=== PATIENT | female | born 1980 | race Caucasian/White ===

== ENCOUNTER → 2020-04-08 | Outpatient (CLI) | payer OTHER | LOC: OD 10:52 | PROVIDERS: ATTEND Otolaryngology | DX: J30.9 Allergic rhinitis, unspecified (principal) | CPT/HCPCS: 36415; 82785; 86003 ==

== ENCOUNTER 2020-09-16 07:21 | Day surgery (SDC) | payer OTHER ==
[~2020-09-16 07:21] MED LIST: CLINDAMYCIN 900 MG/D5W RTU 900 MG/50 ML RTUPB IV PRN
[2020-09-16] MEDS ORDERED: PROMETHAZINE HCL INJ 25 MG/1 ML VIAL ONE (08:17)
[2020-09-16] MEDS ORDERED: FENTANYL CITRATE INJ/PF 100 MCG/2 ML AMPUL ONE (08:17)
[2020-09-16] MEDS ORDERED: ONDANSETRON HCL INJ/PF 4 MG/2 ML SDV ONE (08:17)
[2020-09-16] MEDS ORDERED: PROPOFOL INJ 200 MG/20 ML VIAL IV ONE (08:18)
[2020-09-16] MEDS ORDERED: DEXMEDETOMIDINE INJ 80 MCG/20 ML VIAL IV ONE (08:18)
[2020-09-16] MEDS ORDERED: SUCCINYLCHOLINE CHLORIDE INJ 200 MG/10 ML VIAL ONE (08:18)
[2020-09-16] MEDS ORDERED: DEXAMETHASONE SOD PHOS INJ 10 MG/1 ML VIAL ONE (08:18)
[2020-09-16] MEDS ORDERED: HYDROMORPHONE HCL INJ/PF 2 MG/ML AMPULE ONE (08:18)
[2020-09-16] MEDS ORDERED: MIDAZOLAM 2 MG/2 ML INJ ONE (08:21)
[2020-09-16] MEDS ORDERED: BACITRACIN ZINC OINTMENT 15 GM ONE (08:27)
[2020-09-16] MEDS ORDERED: BUPIVACAINE HCL 0.5%-EPI 1:200000 INJ/PF 30 ML VIAL ONE (08:27)
[2020-09-16] MEDS ORDERED: MINERAL OIL (STERILE) 10 ML VIAL ONE (08:27)
[2020-09-16] MEDS ORDERED: BUPIVACAINE HCL 0.5%/EPI 1:200000 INJ 1.8 ML CARTRIDGE ONE (08:28)
[2020-09-16] MEDS ORDERED: BALANCED SALT IRRIG SOLN COMB2 15 ML BOTTLE ONE (08:28)
[2020-09-16] MEDS ORDERED: TOBRAMYCIN SULFATE/DEXAMETH OPH OINTMENT 3.5 GM ONE (08:28)
[2020-09-16] MEDS ORDERED: OXYMETAZOLINE HCL 0.05% NASAL SPRAY 15 ML BOTTLE ONE (08:28)
[2020-09-16] MEDS ORDERED: LIDOCAINE 1%/EPINEPHRINE INJ 20 ML VIAL ONE (08:31)
[2020-09-16] MEDS ORDERED: ACETAMINOPHEN 1,000 MG/100 ML RTUPB IV ONE (09:21)
--- NOTE | 2020-09-26 10:36 | Operative Report ---
[facility]: DATE OF OPERATION: PREOPERATIVE DIAGNOSES: 1. Chronic rhinosinusitis/CRS 2. Nasal septal deviation, Acquired 3. Bilateral inferior turbinate hypertrophy 4. Nasal Deformities, Acquired 5. Chronic Nasal Dyspnea 6. Bilateral middle turbinate hypertrophy 7. Lateral nasal valve collapse/narrowing POSTOPERATIVE DIAGNOSES: 1. Chronic rhinosinusitis/CRS 2. Nasal septal deviation, Acquired 3. Bilateral inferior turbinate hypertrophy 4. Nasal Deformities, Acquired 5. Chronic Nasal Dyspnea 6. Bilateral middle turbinate hypertrophy 7. Lateral nasal valve collapse/narrowing PROCEDURES: 1. Endo nasal septorhinoplasty with bilateral nasal valve surgery 2. Functional endoscopic sinus surgery as follows: 3. Bilateral maxillary sinus balloon sinuplasty via bilateral transnasal rigid surgical endoscopy 4. Bilateral frontal sinus balloon sinuplasty via bilateral transnasal rigid surgical endoscopy 5. Bilateral intramural inferior turbinate reductions using submucus resection techniques 6. Bilateral middle turbinate reductions using sinus surgery instruments in the microdebrider system SURGEON: Dr. Huan Connolly Anesthesia Staff: JANICE Oneil ANESTHESIA: General endotracheal tube anesthesia/GETA DRAINS: None SPONGE COUNT: Verified NEEDLE COUNT: Verified SPECIMEN/MATERIALS FORWARD TO THE LAB: None ESTIMATED BLOOD LOSS: 50 mL TOTAL IV FLUIDS: 350 mL COMPLICATIONS: None FINDINGS: 1. Right nasal septal deviation involving bone and cartilage with a maxillary crest spur/septal spur. 2. Bilateral inferior and middle turbinate hypertrophy. 3. There were no sinonasal polyps noted or discharge noted. 4. Bilateral nasal valve collapse/narrowing/deficiencies. INDICATIONS: This is a 39-year-old white female patient who was seen and evaluated in the [place] [facility] office. The patient was referred for and they complained of a history of chronic nasal dyspnea, and acute recurrent and chronic sinusitis/sinus disease symptoms over the years. The patient has desired to undergo sinus and nasal surgery to improve functional nasal airflow and overall quality of life. The procedure consisting of septorhinoplasty with bilateral nasal valve surgery, functional endoscopic sinus surgery with balloon sinuplasty of the bilateral maxillary and frontal sinuses, and bilateral inferior and middle turbinate reductions with all of the risks and complications being discussed in detail with the patient. She voiced an understanding, agreed to proceed, and consent was obtained. DESCRIPTION OF OPERATIVE PROCEDURE: The patient was taken to the main operating room and placed on the operating room table in the supine position. Appropriate monitors were placed. Using mask and IV access general anesthesia was induced. The patient was then transorally intubated without difficulty. The table was next positioned for nasal surgery. The patient underwent a nasal examination and local anesthetic with epinephrine was administered to establish a nasal block. The patient next had two Afrin soaked neuropatties placed into each nasal passage. The patient was then prepped and draped in the usual fashion for nasal surgery. The neuropatties were removed and the patient underwent a hemitransfixion incision. There was elevation of the mucoperichondrial and mucoperiosteal flaps without difficulty. The bony cartilaginous junction was identified and divided and the most deviated portions of the bony and cartilaginous septum were removed without difficulty. The maxillary crest/septal spur was removed utilizing a V-gouge without difficulty. There was a greater than 1.5 X 1.5 cm cartilaginous L-Strut preserved. Attention was now turned to performing bilateral inferior turbinate reductions. The turbinate bipolar wand was used to make 2 - 3 intramural passes in each inferior turbinate. At this point the turbinate microdebrider system at a setting of 1500 RPM was used to perform bilateral inferior turbinate submucus resections. This was followed by use of the [place] elevator to outfracture each inferior turbinate. Excessive/redundant mucosa at the anterior portion of the inferior turbinates was next trimmed with margins reapproximated with chromic suture. At this point the image guidance/IG functional endoscopic sinus surgery/FESS portion of the surgery was addressed in the following manner. Bilateral transnasal rigid surgical endoscopy and sinus surgical instrumentation to include a microdebrider system at a setting of 3000 RPM was utilized throughout this portion of the case. Under direct endoscopic guidance the bilateral maxillary sinus and frontal sinus balloon sinuplasty systems were introduced and were inflated at multiple locations for all 4 sinuses and sinus outflow tracts that were balloon dilated with the balloon dilated and held at 12 honorio each time. Findings are as noted above. Once complete the balloon sinuplasty system was withdrawn from the nose. At this point the rhinoplasty portion of the case was addressed in the following manner. The septum was repositioned in the midline and cartilage which had been excised during the case was placed back between the mucosal flaps. At this point the mucosal flaps were reapproximated and the hemitransfixion incision was closed using Chromic suture. The Vivaer device was used to perform intranasal treatments at multiple locations at the bilateral nasal valve areas. At this point the nose was thoroughly irrigated and suctioned. This was followed by placement of intranasal supporting material consisting of a modified Merocel nasal pack with bacitracin and Afrin, 1 in each nasal passage and these were secured at the caudal aspect with 4-0 Prolene suture. There was rolled Surgicel placed in each nasal passage deep to the nasal valve area that had just been treated. The nose was then cleaned and dried. Next, the patient was returned to the anesthesia staff and was allowed to emerge from general anesthesia. The patient was extubated in the main operating room and was then transported to the postanesthesia recovery unit in stable condition. There were no complications.
== END 2020-09-16 12:57 | disposition home or self-care (01) ==
LOC: SC 07:21
PROVIDERS: ATTEND Otolaryngology
DX: J32.0 Chronic maxillary sinusitis (principal); J34.3 Hypertrophy of nasal turbinates; J34.2 Deviated nasal septum; J34.89 Other specified disorders of nose and nasal sinuses; M95.0 Acquired deformity of nose; R06.09 Other forms of dyspnea; J30.9 Allergic rhinitis, unspecified; Z03.818 Encounter for observation for suspected exposure to other biological agents ruled out; G43.009 Migraine without aura, not intractable, without status migrainosus
CPT/HCPCS: 87635; 00160; 30420; 30802; 30930; 31295; 31296; C1769; J2250; J3490 ×7; J1170; J2550; J0330; J2405; J2704; J1100; J0131; C9803; 160; J3010